=== PATIENT | female | born 1950 | race Caucasian/White ===

== ENCOUNTER 2019-03-05 13:19 | Emergency (ER) ==
[2019-03-05 13:28] VITALS: BP 148/100; TEMP 99; BMI 30.2
--- NOTE | 2019-03-05 14:15 | CT ---
EXAM: CT cervical spine. HISTORY: Fall. Hit back of head. COMPARISON: None. TECHNIQUE: Contiguous axial images at 2 mm intervals were obtained from the base of the skull to the thoracic spine. Sagittal and coronal reformats were reviewed. No contrast was given. FINDINGS: There is straightening of the normal lordosis. There is anterolisthesis of C3 on C4 measu ring 3 mm. The vertebral heights are well maintained. There are no acute or healing fractures. Ther e are no lytic or blastic lesions. Disc narrowing is seen at all levels of the spine. There is jennifer ed facet hypertrophy. No disc bulges are identified. The soft tissues are normal. The airway is wid karen patent. Limited views of the lung apices are normal. C 2-3: Disc narrowing. Left uncovertebral hypertrophy. No spinal canal or neural foraminal narrowin g. C 3-4: Severe disc narrowing. Posterior osteophytes. Left neural foramen narrowing. Left hypertrop hy. C 4-5: Severe disc narrowing. Posterior osteophytes. Bilateral neural foraminal narrowing. C 5-6: Severe disc narrowing. Bilateral neural foraminal narrowing, right greater left. C 6-7: Post osteophytes. Left neural foraminal narrowing. IMPRESSION: 1. No acute fractures. 2. Degenerative disc disease at all levels of the spine. Facet hypertrophy.
--- NOTE | 2019-03-05 14:15 | CT ---
EXAM: CT Head HISTORY: Head injury COMPARISON: None TECHNIQUE: CT head performed without contrast FINDINGS: There is no mass effect, midline shift, or intracranial hemmorhage. Coello white differenti ation is preserved. There is no extra-axial collection. The ventricles, sulci, and basal cisterns a re patent and symmetric. There is mild chronic ischemic disease of the white matter and cerebral vol ume loss. There is no depressed calvarial fracture. The mastoid air cells are clear. The visualized paranasal sinuses are clear. There are intracranial atherosclerotic calcifications. IMPRESSION: 1. No acute intracranial abnormality. 2. Mild chronic ischemic disease of the white matter and cerebral volume loss.
--- NOTE | 2019-03-05 14:37 | ED.PDOC ---
General ED Provider: Dr. ALLIE COOPER Chief Complaint: Fall Stated Complaint: FALL LAST NIGHT STRUCK THE POSTERIOR SCALP. NO L.O.C DENIED BACK PAIN . NO SYNCOPE REPORTED Time Seen by Physician: 13:30 ( SEEN WITH ABRAHAM) Mode of Arrival: Walk-In Information Source: Patient Exam Limitations: No limitations Primary Care Provider: ARIEL MACK Nursing and Triage Documentation Reviewed and Agree: Yes Does patient meet sepsis criteria?: No System Inflammatory Response Syndrome: Not Applicable Sepsis Protocol: For patient's 13 years and over: Temp is 96.8 and below OR 101 and greater Pulse >90 BPM Resp >20/minute Acutely Altered Mental Status Are patient's symptoms suggestive of a new infection, such as: -Pneumonia -Skin, Soft Tissue -Endocarditis -UTI -Bone, Joint Infection -Implantable Device -Acute Abdominal Infection -Wound Infection -Meningitis -Blood Stream Catheter Infection -Unknown Trauma/Injury Complaint Exam - Head Injury Complaint/Exam Location of Pain: Reports: Scalp Mechanism of Injury: Reports: Trauma Onset/Duration: 12 HRS AGO Symptoms Are: Still present Initial Severity: Mild Current Severity: Mild Character: Reports: Dull Aggravating: Reports: None Alleviating: Reports: None Associated Signs and Symptoms: Denies: Confusion, Memory loss, Seizure, Epistaxis, Dental malocclusion, Neck pain, Nausea, Vomiting Loss of Consciousness: None SDH Risk Factors: Present: Elderly, Recent trauma (ON NSAID ) Cervical Spine Injury Risk Factors: Present: None Related Surgical History: Reports: None Head Injury Findings: Absent: Hemotympanum (SUB Q HEMATOMA 1 CM POST SCALP NO WOUNDS ), CSF rhinorrhea Glascow Coma Scale (see protocol): 15 Focal Weakness: Present: None Focal Sensory Loss: Present: None Gait: Normal Gag Reflex Present: Yes Finger to Nose: Normal Babinski Sign: Negative Right, Negative Left Nexus Low Risk Criteria: No post-midline CS tender, No evidence of intoxicat., No Altered LOC, No focal neuro deficit, No distracting injuries Head Picture: 1 - HEMATOMA 1 CM Differential Diagnoses: Cervical Fracture, Intracranial Bleed, Sprain, Strain Review of Systems - Review Of Systems Constitutional: Reports: No symptoms Eyes: Reports: No symptoms Ears, Nose, Mouth, Throat: Reports: No symptoms Respiratory: Reports: No symptoms Cardiac: Reports: No symptoms GI: Reports: No symptoms : Reports: No symptoms Musculoskeletal: Reports: No symptoms Skin: Reports: No symptoms Neurological: Reports: No symptoms Endocrine: Reports: No symptoms Hematologic/Lymphatic: Reports: No symptoms All Other Systems: Reviewed and Negative Past Medical History - Past Medical History Previously Healthy: Yes Endocrine: Reports: None Cardiovascular: Reports: Hypertension Respiratory: Reports: None Hematological: Reports: None Gastrointestinal: Reports: None Genitourinary: Reports: None Neuro/Psych: Reports: None Musculoskeletal: Reports: None Cancer: Reports: None Last Menstrual Period: N/A - Surgical History General Surgical History: Reports: None - Family History Family History: Reports: None - Social History Smoking Status: Former smoker Hx Substance Use: No Alcohol Screening: Occasionally - Immunizations Tetanus Shot up to Date: No (UNKNOWN) Physical Exam - Physical Exam Appearance: Well-appearing, No pain distress, Well-nourished Eyes: ELVA, EOMI, Conjunctiva clear ENT: Ears normal, Nose normal, Oropharynx normal Respiratory: Airway patent, Breath sounds clear, Breath sounds equal, Respirations nonlabored Cardiovascular: RRR, Pulses normal, No rub, No murmur GI/: Soft, Nontender, No masses, Bowel sounds normal, No Organomegaly Musculoskeletal: Normal strength, ROM intact, No edema, No calf tenderness Skin: Warm, Dry (HEMATOMA SCALP PREVIOUSLY DESCRIBED ) Neurological: Sensation intact, Motor intact, Reflexes intact, Cranial nerves intact, Alert, Oriented Psychiatric: Affect appropriate, Mood appropriate Interpretation - Radiology Interpretation Radiology Interpretation By: Radiologist Radiology Results: No acute changes Exam Interpreted: CT Scan Re-Evaluation - Re-Evaluation Time of Re-Evaluation: 14:00 Status: Improved Vital Signs Stable: Yes Pain Level: 0 Appearance: NAD Lungs: Clear Skin: Warm and Dry Neuro: Alert and Oriented X3 CV: RRR - Re-Evaluation Time of Re-Evaluation: 14:39 (IMAGING DISCUSSED RUSS LITTLEJOHN RECHECK NEURO WNL) Status: Improved Vital Signs Stable: Yes Pain Level: 0 Appearance: NAD Skin: Warm and Dry Neuro: Alert and Oriented X3 CV: RRR Critical Care Note - Critical Care Note Total Time (mins): 0 Course - Course Orders, Labs, Meds: Orders Category Date Time Status CT CERVICAL SPINE W/O CONTRAST Stat RADS 03/05/19 13:[address] HEAD W/O CONTRAST Stat RADS 03/05/19 13:47 Ordered Vital Signs: Temp Pulse Resp BP Pulse Ox 03/05/19 13:19 99.0 F 88 20 148/100 H 98 Departure - Departure Time of Disposition: 14:40 Disposition: HOME SELF-CARE Discharge Problem: Hematoma Head injury due to trauma Qualifiers: Encounter type: initial encounter Qualified Code(s): S09.90XA - Unspecified injury of head, initial encounter Instructions: Hematoma (ED), Head Injury (ED) Condition: Good Pt referred to PMD for follow-up: Yes IPMP verified?: No Additional Instructions: Please call your Family Physician as soon as possible to schedule a follow-up appointment. Allergies/Adverse Reactions: Allergies onion Adverse Reaction (Verified 03/05/19 13:35) Home Medications: Ambulatory Orders Cetirizine HCl [Zyrtec] 10 mg PO DAILY PRN 03/05/19 Diclofenac Sodium 75 mg PO BID 03/05/19 Fluticasone Propionate [Flonase] 2 spray NS DAILY 03/05/19 Ketotifen Fumarate [Alaway] 10 ml OP DAILY 03/05/19 Montelukast Sodium 10 mg PO DAILY 03/05/19
== END 2019-03-05 14:47 | disposition home or self-care (01) ==
LOC: ED 13:19
DX: S00.03XA Contusion of scalp, initial encounter (principal); W19.XXXA Unspecified fall, initial encounter
CPT/HCPCS: 99283